=== PATIENT | female | born 1990 | race African-American/Black ===

== ENCOUNTER 2022-05-21 20:35 | Emergency (ER) | payer MEDICAID ==
[~2022-05-21] VITALS: Ht 160 cm; Wt 64.0 kg
[2022-05-21 22:02] VITALS: BP 115/73
== END 2022-05-22 01:43 | disposition left against medical advice (07) ==
LOC: ER 20:35
DX: Z53.21 Procedure and treatment not carried out due to patient leaving prior to being seen by health care provider (principal)